=== PATIENT | female | born 1950 | race Caucasian/White ===

== ENCOUNTER 2022-10-31 12:12 | Emergency (ER) | payer MEDICARE ==
[~2022-10-31] VITALS: Ht 160 cm; Wt 104.5 kg
[2022-10-31 13:41] LABS: BASO% 0.2 % (0-3); EOS% 0.9 % (0-8); HEMATOCRIT 39.8 % (37.0-47.0); HEMOGLOBIN 12.7 g/dl (12.0-16.0); IMMATURE GRANULOCYTES 0.1 % (0.0-5.0); LYMPH% 16.8 % (15-41); MEAN CORPUSCULAR HGB 30.3 pG CALC (26.0-32.0); MEAN CORPUSCULAR HGB CONC 31.9 g/dL CAL (32.0-36.0); MONO% 4.2 % (2-13); NEUT# 7.16 thou/uL (2.00-7.15); NEUT% 77.8 % (42-76); RED BLOOD COUNT 4.19 mill/uL (4.20-5.60); RED CELL DISTRI WIDTH 11.9 % (11.5-15.5)
[2022-10-31 13:55] LABS: ALBUMIN 3.9 g/dL (3.2-5.0); BILIRUBIN, TOTAL 0.4 mg/dL (0.02-1.3); CREATININE 1.6 mg/dL (0.5-1.0); POTASSIUM 4.8 mmol/l (3.5-5.1); TOTAL PROTEIN 6.4 g/dL (6.3-8.2)
[2022-10-31] MEDS ORDERED: ZOFRAN4 MG/TAB PO (15:58)
[2022-10-31] MEDS ORDERED: CIPROFLOXACN500 MG PO (15:58)
[2022-10-31] MEDS ORDERED: METRONIDAZOLE500 MG PO (15:58)
[2022-10-31 16:04] VITALS: BP 128/44
== END 2022-10-31 16:30 | disposition home or self-care (01) ==
LOC: ED 12:12
PROVIDERS: Family Medicine
DX: K57.33 Diverticulitis of large intestine without perforation or abscess with bleeding (principal); E11.9 Type 2 diabetes mellitus without complications; I10 Essential (primary) hypertension; E78.5 Hyperlipidemia, unspecified
CPT/HCPCS: Q9967